=== PATIENT | female | born 1955 | race Caucasian/White ===

== ENCOUNTER → 2016-11-25 | Outpatient (CLI) | payer OTHER ==
[~2016-11-25] MED LIST: ALPR1TAB2 PO; CETI10TA10 PO; CHOL100027 PO; DICY10CA55 PO; IBUP-1451 PO; IMD/2 PO; IODITIN6 PO; METH-446 PO; MULTTAB PO; NXM/40 PO; VENL150C56 PO; [UNRECOGNIZED DRUG - OTHER] PO
--- NOTE | 2016-11-25 12:00 | DIAGNOSTIC IMAGING REPORT ---
ULTRASOUND GUIDED FINE NEEDLE ASPIRATION OF RIGHT NECK NODULE CLINICAL HISTORY: Thyroid enlargement. Cervical adenopathy. COMPARISON STUDY: Neck/thyroid ultrasound October 22, 2016. PROCEDURE: Sonography of the right neck demonstrated the 1.1 cm nodule lateral to the right thyroid lobe which was shown on exam of October 22, 2016. By sonography, it was difficult to determine whether this represents an exophytic thyroid nodule or a lymph node. This was targeted for fine needle aspiration. The procedure, risks and benefits were discussed with the patient and informed written consent was obtained. The procedure was performed by Dr. Herrera following a timeout. Skin was prepped and draped in sterile fashion and local anesthesia was achieved with 1% lidocaine. Under direct ultrasound guidance, 3 25-gauge fine needle aspirations were performed. Samples were deemed preliminarily adequate by pathology. The patient tolerated the procedure well and no immediate complications were evident. IMPRESSION: Successful ultrasound guided fine needle aspiration of 1.1 cm right neck thyroid nodule/lymph node. Electronically signed by: Ariel Herrera M.D. 11/25/2016 11:59 AM Dictated Date/Time: 11/25/2016 11:56 AM
== END | disposition home or self-care (01) ==
LOC: C.ULTR 09:51
DX: E01.0 Iodine-deficiency related diffuse (endemic) goiter (principal); R59.0 Localized enlarged lymph nodes; C73 Malignant neoplasm of thyroid gland

== ENCOUNTER 2017-02-17 07:08 | Inpatient (IN) | payer OTHER ==
[2017-01-05 14:50] VITALS: BMI 57.0
--- NOTE | 2017-01-08 12:50 | PAT Medication Instructions ---
Service Date Jan 08, 2017. Current Home Medication List Alprazolam (Alprazolam Er), 2 MG PO QPM Calcium Carbonate-Cholecalcife (Caltrate 600+D), 1 TAB PO QPM Cetirizine Hcl (Zyrtec), 10 MG PO QAM Cholecalciferol (Vitamin D 1000 Unit), 5,000 INTER.UNIT PO QPM Dicyclomine Hcl (Bentyl), 10 MG PO TID PRN for ABDOMINAL CRAMPING Esomeprazole Magnesium (Nexium), 40 MG PO QAM Ferrous Gluconate (Iron), 256 MG PO QPM Ibuprofen Tab (Motrin), 800 MG PO Q8HR PRN Loperamide Hcl (Imodium), 2 MG PO DAILY PRN for Diarrhea Methocarbamol (Robaxin), 750 MG PO Q8HR PRN PRN for MUSCLE RELAXER Multivitamins/Minerals (Mvi With Minerals), 1 PKT PO DAILY Venlafaxine Hcl (Effexor Extended Rel), 150 MG PO QPM [Kidney And More], 1 TAB PO TID Medication Instructions For Your Scheduled Surgery - Hold the following medications 2 weeks prior to surgery: Ibuprofen Tab (Motrin), 800 MG PO Q8HR PRN (per surgeon's instructions) Vitamin E (hold as of today) - Hold the following medications the morning of surgery: Cetirizine Hcl (Zyrtec), 10 MG PO QAM Loperamide Hcl (Imodium), 2 MG PO DAILY PRN for Diarrhea [Kidney And More], 1 TAB PO TID Dicyclomine Hcl (Bentyl), 10 MG PO TID PRN for ABDOMINAL CRAMPING Methocarbamol (Robaxin), 750 MG PO Q8HR PRN PRN for MUSCLE RELAXER Multivitamins/Minerals (Mvi With Minerals), 1 PKT PO DAILY - Take the following medications the morning of surgery with a sip of water OTHERWISE NOTHING TO EAT OR DRINK AFTER MIDNIGHT: Tylenol (may take if needed up to 4 hours prior to surgery) Esomeprazole Magnesium (Nexium), 40 MG PO QAM - Take the following medications as scheduled the night before surgery: Ferrous Gluconate (Iron), 256 MG PO QPM Cholecalciferol (Vitamin D 1000 Unit), 5,000 INTER.UNIT PO QPM Alprazolam (Alprazolam Er), 2 MG PO QPM Calcium Carbonate-Cholecalcife (Caltrate 600+D), 1 TAB PO QPM Loperamide Hcl (Imodium), 2 MG PO DAILY PRN for Diarrhea Tylenol [Kidney And More], 1 TAB PO TID Dicyclomine Hcl (Bentyl), 10 MG PO TID PRN for ABDOMINAL CRAMPING Methocarbamol (Robaxin), 750 MG PO Q8HR PRN PRN for MUSCLE RELAXER Venlafaxine Hcl (Effexor Extended Rel), 150 MG PO QPM If you have any questions please call us at [phone] or [phone] or [phone]
[2017-01-08 15:06] LABS: CALCIUM 9.4 mg/dl (8.5-10.1); CREATININE 0.7 mg/dl (0.60-1.20); POTASSIUM 4.7 mmol/L (3.5-5.1)
[~2017-02-17] VITALS: Ht 155.4 cm; Wt 139.1 kg
[2017-02-17] VITALS (9 sets, daily range): BP systolic 137–167; BP diastolic 74–98; PULSE 73–97; TEMP 36.7–37; O2SAT 94–97; Ht 155.4 cm; Wt 139.1 kg
[~2017-02-17 07:08] MED LIST changes: -ALPR1TAB2 PO; +ALPR2TAB8 PO; +CALC-354 PO; +CHECK SCOPOLAMINE PATCH PLACEMENT SCH; +CLINDAMYCIN IV 900 MG in DEXTROSE 5% 50ML IV SCH; +CLINDAMYCIN IV SCH; +D5W IV SCH; +FERR28TA PO; -IODITIN6 PO; +LACTATED RINGER'S 1000ML 1,000 ML IV SCH; +SCOPOLAMINE 1.5 MG TDSY TD SCH
[2017-02-17] MEDS ORDERED: CLIN300C2 PO (07:55)
[2017-02-17 08:15] LABS: BASO % 0.2 %; BASO ABS # 0.02 K/uL (0-0.2); EOS % 1.5 %; EOS ABS # 0.14 K/uL (0-0.5); HEMATOCRIT 44.1 % (37-47); HEMOGLOBIN 14.4 g/dL (12.0-16.0); IG# 0.04 K/uL (0.00-0.02); LYMPH % 41.6 %; LYMPH ABS # 3.98 K/uL (1.2-3.4); MEAN CELL VOLUME 81.7 fL (80-100); MEAN CORPUSCULAR HEMOGLOBIN 26.7 pg (25-34); MEAN PLATELET VOLUME 8.9 fL (7.4-10.4); MONO % 6.1 %; MONO ABS # 0.58 K/uL (0.11-0.59); NEUT % 50.2 %; NEUT ABS # 4.81 K/uL (1.4-6.5); PLATELET COUNT 212 K/uL (130-400); RED CELL DISTRIBUTION WIDTH CV 16.7 % (11.5-14.5); RED CELL DISTRIBUTION WIDTH SD 49.5 fL (36.4-46.3); WHITE BLOOD COUNT 9.57 K/uL (4.8-10.8)
[2017-02-17 08:26] LABS: MEAN CORPUSCULAR HGB CONC 32.7 g/dl (32-36)
[2017-02-17 08:27] LABS: INR 0.9 (0.9-1.1); PTT PATIENT 28.2 SECONDS (21.0-31.0)
[2017-02-17] MEDS ORDERED: albuterol INH (08:33)
[2017-02-17] MEDS ORDERED: MIDAZOLAM HCL 1 MG/ML 2ML VIAL ONE (08:55)
[2017-02-17] MEDS ORDERED: FENTANYL CITRATE INJ 50 MCG/1 ML 2 ML VIAL ONE ×3 (08:55→12:17)
[2017-02-17] MEDS ORDERED: EpHEDrine SULFATE INJ 50 MG/ML AMP IV PRN (09:00)
[2017-02-17] MEDS ORDERED: ONDANSETRON INJ 2 MG/ML 2 ML VIAL IV PRN ×2 (09:00→12:45)
[2017-02-17] MEDS ORDERED: ATROPINE SULFATE 0.1 MG/ML 5ML SYR IV PRN (09:00)
[2017-02-17] MEDS ORDERED: THROMBIN 5000 UNITS KIT ONE (09:52)
[2017-02-17] MEDS ORDERED: LIDOCAINE/EPINEPHRINE 1% 20 ML VIAL ONE (09:52)
[2017-02-17] MEDS ORDERED: BACITRACIN OINT 15 GM TUBE ONE (09:52)
--- NOTE | 2017-02-17 09:52 | History and Physical ---
History & Physical Date Feb 17, 2017. Chief Complaint SUSPICIOUS THYROID NODULE AND EUSTACHIAN TUBE DYSFUNCTION History of Present Illness The patient is a 62 year old female with complaints of SUSPICIUS RIGHT THYROID NODULE WHICH MEASURES 1.2CM AND US-GUIDED FNA SHOWED FOLLICULAR NEOPLASM. OPTIONS INCLUDING OBSERVATION, SURVEILLANCE ULTRASOUNDS, RIGHT THYROID LOBECTOMY VS TOTAL THYROIDECTOMY D/W PT AND SHE DESIRES TOTAL THYROIDECTOMY. PT ALSO WITH ETD AND IS S/P BMT W/ T-TUBES BY DR. ARGUETA AND RECENTLY HER R T- TUBE EXTRUDED. SHE IS ASKING FOR A NEW R M&T WITH T-TUBE TO BE DONE TODAY. Past Medical/Surgical History PMH: ABOVE, OBESITY, ANXIETY, ALLERGIC RHINITIS, BPPV, IBS, LPR, PANIC DISORDER, SNHL, TMJD, ASTHMA PSH: S/P BREAST LUMPECTOMY, D&C, TEMO, BMT (MULTIPLE), TONSILLECTOMY, TUBAL LIGATION Additional History Hepatic Disease: No Endocrine Disorder: No Kidney Disease: No Hypertension: No Heart Disease: No Bleeding Tendencies: No Infectious Diseases: No Allergies Coded Allergies: Penicillins (Verified Allergy, Severe, HIVES, 01/05/17) Adhesives (Verified Allergy, Unknown, WELTS/REDNESS, 01/05/17) Ciprofloxacin (Verified Allergy, Unknown, SWELLING&REDNESS, 01/05/17) Sertraline (Verified Allergy, Unknown, "THOUGHT I WAS LOOSING MY MIND", ) Home Medications Scheduled Alprazolam (Alprazolam Er), 2 MG PO QPM Calcium Carbonate-Cholecalcife (Caltrate 600+D), 1 TAB PO QPM Cetirizine Hcl (Zyrtec), 10 MG PO QAM Cholecalciferol (Vitamin D 1000 Unit), 5,000 INTER.UNIT PO QPM Clindamycin Hcl (Cleocin), 300 MG PO QID Esomeprazole Magnesium (Nexium), 40 MG PO QAM Ferrous Gluconate (Iron), 256 MG PO QPM Ibuprofen Tab (Motrin), 800 MG PO Q8HR PRN Multivitamins/Minerals (Mvi With Minerals), 1 PKT PO DAILY Venlafaxine Hcl (Effexor Extended Rel), 150 MG PO QPM [Kidney And More], 1 TAB PO TID Scheduled PRN Dicyclomine Hcl (Bentyl), 10 MG PO TID PRN for ABDOMINAL CRAMPING Loperamide Hcl (Imodium), 2 MG PO DAILY PRN for Diarrhea Methocarbamol (Robaxin), 750 MG PO Q8HR PRN PRN for MUSCLE RELAXER [albuterol], 2 PUFFS INH BID PRN for SOB/Wheezing Physical Examination Skin: warm/dry, no rash Eyes: normal inspection, EOMI, sclerae normal ENT: + pertinent finding (OBESE NECK; SCLEROTIC R TM) Head: normocephalic, atraumatic Neck: supple, no adenopathy, trachea midline Respiratory/Chest: lungs clear, normal breath sounds, no respiratory distress Cardiovascular: regular rate, rhythm, no edema, no murmur Neurologic/Psych: no motor/sensory deficits, alert, normal reflexes, oriented x 3 Diagnosis SUSPICIOUS RIGHT THYROID NODULE AND ETD Plan of Treatment R MYRINGOTOMY AND T-TUBE PLACEMENT AND TOTAL THYROIDECTOMY
[2017-02-17] MEDS ORDERED: OFLOXACIN 0.3% OP SOLN 5 ML BTL ONE (09:54)
[2017-02-17] MEDS ORDERED: HYDROmorphone INJ 2 MG/ML SYR/VIAL ONE (10:19)
[2017-02-17] MEDS ORDERED: OXYMETAZOLINE HCL 0.05% NA SPR 15 ML BTL ONE (10:22)
[2017-02-17] MEDS ORDERED: PROPOFOL IV EMULSION 10 MG/ML 20 ML VIAL IV ONE ×2 (12:17→12:34)
[2017-02-17] MEDS ORDERED: ONDANSETRON INJ 2 MG/ML 2 ML VIAL ONE (12:17)
[2017-02-17] MEDS ORDERED: SUCCINYLCHOLINE CHLORIDE 20 MG/ML 10 ML VIAL IV ONE (12:17)
[2017-02-17] MEDS ORDERED: DEXAMETHASONE SOD INJ 4 MG/ML VIAL ONE (12:17)
[2017-02-17] MEDS ORDERED: LIDOCAINE HCL 2% 2 ML VIAL (20MG/ML) ONE (12:17)
--- NOTE | 2017-02-17 12:44 | [facility] Operative Report ---
Operative Report Operative Date Feb 17, 2017. Pre-Operative Diagnosis Suspicious thyroid nodule and eustachian tube dysfunction Post-Operative Diagnosis Same Procedure(s) Performed Total Thyroidectomy and Right Myringotomy with T Tube placement Surgeon Dr Casarez Daily Release And Dupe Printer Surgeon(s) Josiane España PA-C Estimated Blood Loss 100cc Findings 1. EXTRUDED R T-TUBE 2. DRY R MIDDLE EAR SPACE 3. HIGHLY ABNORMAL THYROID GLAND WITH POOR TISSUE PLANES AND ~1.5CM RIGHT THYROID NODULE Specimens As Per Surgeon A. Left thyroid lobe / double stitch =superior and single stitch = isthmus B. Right Thyroid Lobe / double stitch =superior and single stitch = isthmus I attest to the content of the Intraoperative Record and any orders documented therein. Any exceptions are noted below.
[2017-02-17] MEDS ORDERED: ALBUTEROL HFA 8 GM INHALER INH PRN (12:45)
[2017-02-17] MEDS ORDERED: DICYCLOMINE HCL 10 MG CAP PO PRN (12:45)
[2017-02-17] MEDS ORDERED: LOPERAMIDE HCL 2 MG CAP PO PRN (12:45)
[2017-02-17] MEDS ORDERED: HYDROCODONE/ACETAMOPHEN 5/325MG TAB PO PRN (12:45)
--- NOTE | 2017-02-17 12:50 | Discharge Instructions ---
Discharge Instructions Date of Service Feb 17, 2017. Admission Reason for Admission: Thyroid Nodule Discharge Discharge Diagnosis / Problem: SAME Discharge Goals Goal(s): Therapeutic intervention Activity Recommendations Activity Limitations: as noted below LIGHT ACTIVITY FOR 2 WEEKS; DRY EAR PRECAUTIONS WHILE TUBES IN PLACE; NO DRIVING WHILE ON NORCO . Current Hospital Diet Patient's current hospital diet: Discharge Diet Recommended Diet: Regular Diet Procedures Procedures Performed: Total Thyroidectomy and Right Myringotomy with T Tube placement Pending Studies Studies pending at discharge: no Medical Emergencies . Who to Call and When: Medical Emergencies: If at any time you feel your situation is an emergency, please call 911 immediately. . Non-Emergent Contact Non-Emergency issues call your: Surgeon . . "Provider Documentation" section prepared by Bubba Casarez. . VTE Core Measure Inpt VTE Proph given/why not?: SCD's
[2017-02-17] MEDS: CLINDAMYCIN HCL 150 MG CAP PO SCH ×3 (13:00→21:04)
[2017-02-17] MEDS: FENTANYL CITRATE INJ 50 MCG/1 ML 2 ML VIAL IV PRN ×4 (13:44→14:27)
[2017-02-17] MEDS ORDERED: OXYCODONE/ACETAMINOPHEN 5-325 TAB PO PRN (13:45)
[2017-02-17] MEDS ORDERED: [UNRECOGNIZED DRUG - OTHER] PO SCH (14:00)
--- NOTE | 2017-02-17 14:19 | Anesthesiology Progress Note ---
Anesthesia Post Op Note Date & Time Feb 17, 2017 at 14:19 Vital Signs Pain Intensity: 8.5 Vital Signs Past 12 Hours Date Time Temp Pulse Resp B/P (MAP) Pulse Ox O2 Delivery O2 Flow Rate FiO2 02/17/17 13:55 93 16 173/107 95 Nasal Cannula 3 02/17/17 13:45 96 14 165/89 95 Nasal Cannula 3 02/17/17 13:35 97 14 161/100 97 Oxymask 10 02/17/17 13:25 104 18 152/111 97 Oxymask 10 02/17/17 13:16 36.2 106 12 149/91 95 Oxymask 10 02/17/17 08:03 36.9 80 22 138/74 (95) 97 Room Air Notes Mental Status: alert / awake / arousable, participated in evaluation Pt Amnestic to Procedure: Yes Nausea / Vomiting: adequately controlled Pain: adequately controlled Airway Patency, RR, SpO2: stable & adequate BP & HR: stable & adequate Hydration State: stable & adequate Anesthetic Complications: no major complications apparent
--- NOTE | 2017-02-17 14:42 | OPERATIVE REPORT ---
DATE OF OPERATION: 02/17/2017 PREOPERATIVE DIAGNOSES: 1. Eustachian tube dysfunction. 2. Suspicious right thyroid nodule. POSTOPERATIVE DIAGNOSES: 1. Eustachian tube dysfunction. 2. Suspicious right thyroid nodule. PROCEDURES: 1. Right ear tube removal. 2. Right myringotomy and T-tube placement. 3. Total thyroidectomy. SURGEON: Dr. Bubba Casarez. EXTERNAL GRINDER TENDER: Josiane España PA-C ANESTHESIA: General endotracheal with a size 7 nerve integrity monitor endotracheal tube. ESTIMATED BLOOD LOSS: 100 mL. FINDINGS: 1. Extruded right T-tube within the external auditory canal. 2. Dry right middle ear space. 3. Poor tissue planes involving the thyroid gland with a 1.5 cm right thyroid nodule, which was somewhat lobulated and friable. SPECIMENS: Right and left thyroid lobes sent separately for permanent pathologic assessment. DRAINS: None. COMPLICATIONS: None. INDICATIONS FOR THE PROCEDURE: The patient is a 62-year-old female with a long history of chronic eustachian tube dysfunction, who has undergone multiple bilateral myringotomy and tube placements in the past with the most recent one being done by Dr. Arceo approximately 3 years ago, who states that her right tube extruded recently. She asked for a new right tube to be placed. In addition, the patient has a suspicious right thyroid nodule that measures approximately 1.2 cm on ultrasound, for which an ultrasound guided fine needle aspiration biopsy suggested a follicular neoplasm. Because an FNA showing follicular neoplasm cannot determine whether or not this is benign or malignant, options including a right thyroid lobectomy versus total thyroidectomy versus continued ultrasound surveillance were discussed with the patient and she wishes to have a total thyroidectomy. She desires total thyroidectomy. She presents for the above-mentioned procedures on an inpatient elective basis. DESCRIPTION OF PROCEDURE: After informed consent had been obtained from the patient, the patient was wheeled to the operating room and placed on the operating table in the supine position. Monitors were placed. After induction of general endotracheal anesthesia and with a size 7 nerve integrity monitor endotracheal tube, the patient's head was gently turned to the left and a speculum was inserted into the right external auditory canal. The operating microscope was wheeled in and used to perform the procedure. An empty alligator forceps was then used to remove an extruded T-tube that was lying within the external auditory canal. The patient's tympanic membrane was completely healed. A new incision was made in the posterior inferior quadrant of the tympanic membrane and the middle ear space was found to be dry. A new Germain T-tube was then placed with a T-tube diesel powerplant mechanic. Floxin drops were instilled into the middle ear space and a cotton ball was placed into the conchal bowl. The patient's head was then placed in the neutral position and her head and neck were gently extended. The patient is morbidly obese with a BMI of approximately 57 and therefore, her chest tissue and chin tissue needed to be taped with 3-inch strong tape. This allowed for exposure of the neck. A marking pen was used to outline the planned 5-cm incision in a natural skin crease 2 fingerbreadths above the level of clavicles. 3 mL of 1% lidocaine with 1:100,000 epinephrine was then used to inject the skin and subcutaneous tissues overlying the planned incision site. The skin of the neck and chest were then prepped and draped in the usual sterile fashion. #15 scalpel was then used to make an incision through the skin, subcutaneous tissue, and platysma. Subplatysmal flaps were raised superiorly to the level of the thyroid notch and inferiorly to the level of clavicles. The strap muscles retracted laterally and the left thyroid lobe was first addressed. The middle thyroid vein as well as superior and inferior thyroid vascular pedicles were divided adjacent to the thyroid capsule using a Harmonic scalpel. The left thyroid lobe was quite small in size and had poor tissue planes with easy friability with manipulation. Care was taken to identify and preserve the left recurrent laryngeal nerve as well as superior and inferior parathyroid candidates. The thyroid gland was at the isthmus using a Harmonic scalpel. Orienting sutures were placed on the left thyroid lobectomy specimen, which was sent off for permanent pathological assessment. The right side was then addressed. On this side, the lobe was larger and there was a suspicious nodule involving the lateral aspect of the right thyroid lobe. Of note, it was multilobulated and also quite friable. Dissection was carried lateral to medial with care to identify and preserve the right recurrent laryngeal nerve as well as superior and inferior parathyroid candidates. Orienting sutures were placed on the right thyroid lobectomy specimen, which was sent off for permanent pathological specimen. The wound was then copiously irrigated and suctioned. Bipolar electrocautery was used to achieve adequate hemostasis. Hemostasis was confirmed with a Valsalva maneuver. Small pieces of Surgicel followed by topical spray thrombin were then placed in the bilateral tracheoesophageal grooves for added hemostasis. The strap muscle was then reapproximated in the midline using several simple interrupted 3-0 Vicryl sutures. A 4-0 Monocryl sutures were used to close the platysmal layer. The skin was then closed with a simple running subcuticular 5-0 Monocryl suture. The incision was cleansed and dried. This marked the end of the case. The patient tolerated the procedure well and there were no apparent complications. The patient was extubated and transferred to recovery room in stable condition. I attest to the content of the Intraoperative Record and any orders documented therein. Any exception s are noted below.
--- NOTE | 2017-02-17 14:59 | ENT PROGRESS NOTE ---
DATE: 02/17/2017 SUBJECTIVE: The patient was seen in the recovery room after her right ear tube removal, right myringotomy and T-tube placement, and total thyroidectomy. She is without any complaints. She denies any perioral or digital numbness or paresthesias. She denies any involuntary muscle spasms or cramps. OBJECTIVE: VITAL SIGNS: She is afebrile and her vital signs are stable, although she is mildly hypertensive with a blood pressure of 164/93. She is satting 94% on 3 liters of oxygen via nasal cannula. HEENT: The patient's voice is normal. Her thyroidectomy incision is clean, dry and intact. There is no evidence of hematoma or fluid collection. ASSESSMENT AND PLAN: Postoperative day #0 status post total thyroidectomy. The patient tolerated the procedure well with no apparent complications thus far. Her first set of lab values will be drawn at 6:00 p.m. and every 6 hours thereafter. I anticipate discharge to home tomorrow.
[2017-02-17] MEDS: LACTATED RINGER'S 1000ML 1,000 ML IV SCH ×2 (16:11→23:25)
[2017-02-17] MEDS: CHECK SCOPOLAMINE PATCH PLACEMENT SCH (16:11)
[2017-02-17] MEDS: OXYCODONE/ACETAMINOPHEN 5-325 TAB PO PRN ×2 (18:14→22:03)
[2017-02-17 18:50] LABS: ALBUMIN 3.3 gm/dl (3.4-5.0); CALCIUM 9.3 mg/dl (8.5-10.1); PHOSPHORUS 4.1 mg/dl (2.5-4.9)
[2017-02-17] MEDS ORDERED: TEMAZEPAM 15 MG CAP PO PRN (20:00)
[2017-02-17] MEDS ORDERED: FERROUS GLUCONATE 324 MG TAB PO SCH ×2 (21:00)
[2017-02-17] MEDS ORDERED: CHOLECALCIFEROL 1000 INTER.UNIT TAB PO SCH (21:00)
[2017-02-17] MEDS ORDERED: VENLAFAXINE HCL XR 150 MG CAPXR PO SCH (21:00)
[2017-02-17] MEDS ORDERED: ALPRAZOLAM 2 MG PO SCH (21:00)
[2017-02-17] MEDS ORDERED: CALCIUM 600MG + VIT D 400 IU TAB PO SCH (21:00)
[2017-02-17] MEDS: OFLOXACIN 0.3% OP SOLN 5 ML BTL OTR SCH (21:59)
[2017-02-18 00:56] LABS: ALBUMIN 3.3 gm/dl (3.4-5.0); CALCIUM 9.4 mg/dl (8.5-10.1); PHOSPHORUS 3.9 mg/dl (2.5-4.9)
[2017-02-18] MEDS ORDERED: ALPRAZOLAM 2 MG PO SCH (01:00)
[2017-02-18 03:16] VITALS: BP 150/93; PULSE 67; TEMP 36.7; O2SAT 95
[2017-02-18] MEDS: LACTATED RINGER'S 1000ML 1,000 ML IV SCH (04:47)
--- NOTE | 2017-02-18 05:07 | ENT PROGRESS NOTE ---
DATE: 02/18/2017 SUBJECTIVE: The patient is postoperative day #1 status post total thyroidectomy for a suspicious right thyroid nodule. She is also status post right ear tube removal and right myringotomy and T-tube placement. She has no complaints this morning. She denies any numbness or tingling around her lips, fingers or toes. She denies any involuntary muscle spasms or cramps. OBJECTIVE: The patient is afebrile and her vital signs are stable. Her voice is normal. Her thyroidectomy incision is clean, dry and intact with no evidence of hematoma. LABORATORY DATA: Examinations reveals normal calcium and actually her calcium went up from yesterday to early this morning. ASSESSMENT AND PLAN: Postoperative day #1 status post total thyroidectomy. The patient is doing very well postoperatively. She will be discharged to home this morning.
--- NOTE | 2017-02-18 05:14 | DISCHARGE SUMMARY ---
ADMISSION DIAGNOSIS: Eustachian tube dysfunction and suspicious right thyroid nodule. DISCHARGE DIAGNOSIS: Status post right ear tube removal, right myringotomy and T-tube placement, and total thyroidectomy. HOSPITAL COURSE: The patient is a 62-year-old female with a history of a suspicious right thyroid nodule for which an ultrasound guided fine needle aspiration biopsy revealed a follicular neoplasm. After discussing the options with the patient, she decided to undergo total thyroidectomy. The patient also has a history of chronic eustachian tube dysfunction and states that her right tube extruded recently. She underwent right tube removal, right myringotomy and T-tube placement, and total thyroidectomy on 02/17/2017 with intraoperative findings of approximately 1.5 cm right thyroid nodule in the lateral aspect of the gland with overall poor tissue planes. Her right middle ear space was dry. She did well postoperatively with no voice or swallowing problems. Her calcium levels were normal. She denied any symptoms of hypocalcemia. She was discharged to home on postoperative day #1 in satisfactory condition on the following medications: 1. Ofloxacin 5 drops to the right ear twice daily for 3 days. 2. Synthroid 225 mcg daily. 3. Percocet 5 mg/325 mg 1-2 tablets p.o. q. 4 p.r.n. with 40 tablets given. She is to keep her incision, dry for 1 week and keep ice on her neck as much as possible for 1 week. She is to follow up in my office on postoperative day #6.
[2017-02-18] MEDS ORDERED: NURSING VERBAL MED ORDER ONE (05:30)
[2017-02-18] MEDS ORDERED: LEVOTHYROXINE 200 MCG TAB PO SCH (06:00)
[2017-02-18] MEDS ORDERED: LEVOTHYROXINE 25 MCG TAB PO SCH (06:00)
[2017-02-18 06:54] VITALS: BP 150/93; PULSE 67; TEMP 36.7; O2SAT 95
[2017-02-18 07:10] LABS: CALCIUM 9.6 mg/dl (8.5-10.1)
[2017-02-18 07:14] LABS: ALBUMIN 3.3 gm/dl (3.4-5.0); PHOSPHORUS 3.9 mg/dl (2.5-4.9)
[2017-02-18] MEDS: CLINDAMYCIN HCL 150 MG CAP PO SCH (08:22)
[2017-02-18] MEDS: CHECK SCOPOLAMINE PATCH PLACEMENT SCH ×2 (08:24)
[2017-02-18] MEDS: OFLOXACIN 0.3% OP SOLN 5 ML BTL OTR SCH (08:24)
[2017-02-18] MEDS ORDERED: CETIRIZINE HCL 10 MG TAB PO SCH (09:00)
[2017-02-18] MEDS ORDERED: PANTOprazole SOD 40 MG TAB PO SCH (09:00)
== END 2017-02-18 09:15 | disposition home or self-care (01) | DRG 626 ==
LOC: C.ACU 07:08 → C.MSW 12:49 → ENRESERV 14:31
PROC: 099570Z Drainage of Right Middle Ear with Drainage Device, Via Natural or Artificial Opening (ICD-10-PCS; principal; 2017-02-17 09:30)
PROC: 0GTK0ZZ Resection of Thyroid Gland, Open Approach (ICD-10-PCS; principal; 2017-02-17 09:30)
DX: D44.0 Neoplasm of uncertain behavior of thyroid gland (principal); Z68.43 Body mass index [BMI] 50.0-59.9, adult; H69.90 Unspecified Eustachian tube disorder, unspecified ear; T85.9XXA Unspecified complication of internal prosthetic device, implant and graft, initial encounter; Y72.2 Prosthetic and other implants, materials and accessory otorhinolaryngological devices associated with adverse incidents; J45.909 Unspecified asthma, uncomplicated; F41.0 Panic disorder [episodic paroxysmal anxiety]; E66.9 Obesity, unspecified; Z45.82 Encounter for adjustment or removal of myringotomy device (stent) (tube); Z79.899 Other long term (current) drug therapy

== ENCOUNTER → 2017-03-02 | Outpatient (CLI) | payer OTHER ==
[~2017-03-02] MED LIST changes: -CHECK SCOPOLAMINE PATCH PLACEMENT SCH; +CLIN300C2 PO; -CLINDAMYCIN IV 900 MG in DEXTROSE 5% 50ML IV SCH; -CLINDAMYCIN IV SCH; -D5W IV SCH; -IBUP-1451 PO; -LACTATED RINGER'S 1000ML 1,000 ML IV SCH; -SCOPOLAMINE 1.5 MG TDSY TD SCH; +albuterol INH
== END | disposition home or self-care (01) ==
LOC: C.LAB 10:18
DX: E89.0 Postprocedural hypothyroidism (principal)

== ENCOUNTER → 2017-03-10 | Outpatient (CLI) | payer OTHER ==
--- NOTE | 2017-03-10 11:33 | DIAGNOSTIC IMAGING REPORT ---
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 TECHNIQUE: PET/CT was performed from the vertex through the proximal thighs following the intravenous administration of 14.612 mCi of F18-FDG. Blood glucose level 111 mg/dL. The injection was performed at 7:55 AM and imaging began at 9:08 AM of the body and 9:40 AM of the head and neck. Unenhanced CT was performed for attenuation correction purposes and anatomic localization. COMPARISON: Ultrasound of the neck from 10/22/2016. CT DOSE (mGy.cm): The estimated cumulative dose is 1564.09. FINDINGS: Head and neck: Post surgical changes of thyroidectomy. Somewhat ill-defined mild FDG avidity noted in the thyroidectomy bed (max SUV 4.1), most pronounced and focal along the anterior and left lateral aspect. Additional somewhat focal activity in the right posterior lateral aspect (max SUV 4.1). This does not have a convincing correlate on anatomic imaging and may reflect postsurgical granulation tissue versus residual disease. No FDG avid lymphadenopathy in the neck. No evidence of abnormal FDG avidity or photopenia in the head. Chest: No FDG-avid lymphadenopathy or pulmonary opacities. No axillary, supraclavicular, or mediastinal lymphadenopathy. Evaluation of the ankit limited without intravenous contrast. Atherosclerosis of the aorta. Mild multichamber enlargement of the heart. No pericardial or pleural effusion. Bandlike opacities in the right middle lobe and lingula, likely atelectasis or scarring. Airways patent. Abdomen and pelvis: Normal physiologic distribution of radiotracer in the gastrointestinal and genitourinary tracts. No FDG avid lymphadenopathy or mass lesion. Cholecystectomy clips noted. Atherosclerosis of the normal caliber abdominal aorta. Musculoskeletal: No FDG-avid or destructive osseous lesion. Degenerative changes of the spine. IMPRESSION: 1. Initial PET/CT demonstrates post surgical changes of thyroidectomy. Mild FDG avidity in the thyroidectomy bed. This is somewhat indeterminate, however, may reflect postsurgical granulation tissue. The possibility of residual disease is not fully excluded. Consider ultrasound of the thyroidectomy bed for further evaluation if clinically indicated. 2. No FDG avidity lymphadenopathy or sites of metastatic disease. Electronically signed by: Phillip Otero M.D. 03/10/2017 11:32 AM Dictated Date/Time: 03/10/2017 11:18 AM
== END | disposition home or self-care (01) ==
LOC: C.PET 07:31
PROVIDERS: ATTEND Internal Medicine Endocrinology, Diabetes & Metabolism
DX: C73 Malignant neoplasm of thyroid gland (principal)